=== PATIENT | male | born 1970 | race Caucasian/White ===

== ENCOUNTER 2022-06-21 11:17 | Day surgery (SDC) | payer OTHER, SELFPAY ==
[2022-06-07 07:48] VITALS: BMI 25.0
--- NOTE | 2022-06-20 11:33 | PM.HPGS ---
History of Present Illness History of Present Illness Consent: Risks, benefits, and alternatives have been discussed and questions answered. Patient agrees to proceed with procedure. Chief complaint: Family History of Colon Cancer Narrative: Toño Agee is a 52 year old male Referred for colon cancer screening. his mother had colon cancer as did 2 of his grandparents, on his father's side. Review of Systems Review of Systems: All systems reviewed & are unremarkable except as noted in HPI and below PMFSH Past Medical History Medical History Hypertriglyceridemia Obstructive sleep apnea syndrome Surgical History Surgical History H/O inguinal hernia repair Family History Family History Mother Patient's mother is in good health Father Patient's father is in good health Grandparent Carcinoma of colon Other Diabetes mellitus Family history of malignant neoplasm Social History Social History Smoking status: Never smoker Second hand tobacco smoke exposure: No Alcohol intake: current Substance use: never Substance use type: does not use Living arrangements: with family Gender identity (if verbalized by the patient): Male Spiritual care concerns: No Agree to blood products: Yes Meds Home Medications and Allergies Home Medications Medication Instructions Recorded Confirmed Type fenofibrate 160 mg tablet 160 mg PO DAILY #90 tabs 05/23/21 06/21/22 Rx Allergies Allergy/AdvReac Type Severity Reaction Status Date / Time Sulfa (Sulfonamide Allergy Unknown rash Verified 06/21/22 11:43 Antibiotics) Exam Resp: Auscultation: clear to auscultation bilaterally Cardio: Rate: regular rate Rhythm: regular rhythm GI: GI Palp: Yes Soft to palpation and No Tenderness to palpation present (GI) Assessment and Plan Assessment and plan (1) Colon cancer screening: Code(s): Z12.11 - Encounter for screening for malignant neoplasm of colon Status: Acute Assessment and Plan: Colonoscopy with possible biopsy or polypectomy or cautery or injection of substances.
[2022-06-21 11:46] VITALS: BMI 24.9
[2022-06-21 11:50] VITALS: BP 118/86; PULSE 72; RESP 16; TEMP 36.7; O2SAT 100
--- NOTE | 2022-06-21 11:56 | P.PNAN_ITS ---
Anes - Initial Pre Proc Eval Procedure: Operation Date: 06/21/22 12:30 Proposed Procedures p Screening Colonoscopy - Grayson Montanez MD Date/Time: 06/21/22 11:56 Surgeon: Grayson Montanez MD Pre Op Diagnosis: Family History of Colon Cancer Patient Data Age: 52 Gender: M Height: 1.75 m Weight: 76.6 kg Last Vital Signs Temp 36.7 C 06/21/22 11:50 Pulse 72 06/21/22 11:50 Resp 16 06/21/22 11:50 BP 118/86 06/21/22 11:50 Pulse Ox 100 06/21/22 11:50 O2 Del Method Room Air 06/21/22 11:50 Allergies Allergy/AdvReac Type Severity Reaction Status Date / Time Sulfa (Sulfonamide Allergy Unknown rash Verified 06/21/22 11:43 Antibiotics) Home Medications Medication Instructions Recorded Confirmed Type fenofibrate 160 mg tablet 160 mg PO DAILY #90 tabs 05/23/21 06/21/22 Rx Patient hx anesthesia problems: post op nausea/vomiting Family hx anesthesia problems: none Results Review: All pre-operative results and documents have been reviewed as part of the pre- operative evaluation. [facility] Past Medical History Medical History Hypertriglyceridemia Obstructive sleep apnea syndrome Surgical History Surgical History H/O inguinal hernia repair Family History Family History Mother Patient's mother is in good health Father Patient's father is in good health Grandparent Carcinoma of colon Other Diabetes mellitus Family history of malignant neoplasm Social History Social History Smoking status: Never smoker Second hand tobacco smoke exposure: No Alcohol intake: current Substance use: never Substance use type: does not use Living arrangements: with family Gender identity (if verbalized by the patient): Male Spiritual care concerns: No Agree to blood products: Yes Anes - Eval Final PreProcedure Day of Procedure 06/21/22 11:56 Patient weight: normal Heart: regular rate and rhythm Lungs: clear to auscultation Airway: Mallampati scale class II Neurological: alert and oriented Last oral intake: >/= 8 hours ASA classification: II Emergent: no Anesthetic plan: proceed Anesthesia type and monitoring: general GIVS and standard monitoring Results Review: All pre-operative results and documents have been reviewed as part of the pre- operative evaluation. Informed Consent: The patient's anesthetic plan and its attendant risks and benefits were discussed with the patient/family/POA. Questions were solicited and answers provided to the satisfaction of the patient/family/POA.
[2022-06-21] MEDS: LACTATED RINGERS 1,000 ML 150 ML IV CONT (11:59)
[2022-06-21 12:34] VITALS: BP 117/88; PULSE 85; RESP 20; O2SAT 100
[2022-06-21 12:44] VITALS: BP 117/88; PULSE 85; RESP 20; O2SAT 100
[2022-06-21 12:54] VITALS: BP 119/89; PULSE 88; RESP 20; O2SAT 100
--- NOTE | 2022-06-21 12:55 | WPDANESPN ---
Anes - Prog Note Post-Op Date/Time: 06/21/22 12:55 Cardiovascular status: normal Respiratory status: normal Airway patency: baseline Mental status: baseline Post-Op hydration status: normal Vital Signs: Last Vital Signs Temp 36.7 C 06/21/22 11:50 Pulse 85 06/21/22 12:44 Resp 20 06/21/22 12:44 BP 117/88 06/21/22 12:44 Pulse Ox 100 06/21/22 12:44 O2 Del Method Room Air 06/21/22 12:44 Pain Score (VAS): 0 I/O: Intake & Output 06/20/22 06/21/22 06/21/22 23:59 07:59 15:59 Intake Total 200 Balance 200 Patient Feedback: Patient satisfied with anesthetic care.
== END 2022-06-21 13:03 | disposition home or self-care (01) ==
PROVIDERS: PCP Family Medicine; Visit Provider Internal Medicine Gastroenterology
PROC: 0DJD8ZZ Inspection of Lower Intestinal Tract, Via Natural or Artificial Opening Endoscopic (ICD-10-PCS; CPT 45378; principal; 2022-06-21 12:30)
DX: Z12.11 Encounter for screening for malignant neoplasm of colon (principal)
CPT/HCPCS: 45378